=== PATIENT | female | born 1975 | race Caucasian/White ===

== ENCOUNTER 2017-12-02 06:45 | Day surgery (SDC) | payer BC ==
--- NOTE | 2017-11-24 14:39 | HP ---
PREOPERATIVE HISTORY AND PHYSICAL: DATE OF ADMISSION/SURGERY: 12/02/17 [facility] DATE OF OFFICE VISIT/ENCOUNTER: 11/19/17 ATTENDING SURGEON: Radha Brooks MD *(DICTATED BY ROGELIO LATIF) PROCEDURE: Right thumb trigger release. CHIEF COMPLAINT: Right thumb triggering. HISTORY OF PRESENT ILLNESS: This is a 42-year-old female, who complains of catching and clicking in her right thumb ongoing since the fall of 2016. 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 She says that it has become quite bothersome while she is working and she has a lot of pain and catching when she wakes up in the morning. Often times, her thumb is locked and it is very painful for her to extend her thumb. She denies any injury and there is no associated numbness or tingling. She has failed conservative treatment including a cortisone injection, oral antiinflammatories, and a thumb spica brace. She is interested in pursuing surgical intervention at this time. PAST MEDICAL HISTORY: 1. Depression. 2. GERD. 3. History of alcohol and drug abuse, sober for 24 years. PAST SURGICAL HISTORY: 1. Left knee surgery. 2. [place] teeth extraction. 3. Left foot plantar wart removal. 4. Anterior cervical diskectomy surgery in May of 2015. CURRENT MEDICATIONS: 1. Citalopram hydrobromide 40 mg daily. 2. Pantoprazole sodium 40 mg daily. 3. Vitamin B complex daily. ALLERGIES: PERCOCET, reaction unknown. FAMILY MEDICAL HISTORY: Epilepsy and COPD. SOCIAL HISTORY: The patient is employed in sterile processing at [employer]. She is a current smoker. She smokes less than half a pack a day and has done so for the past 8 years. She denies recreational drug use. She does not drink alcohol. She has been sober 24 years. REVIEW OF SYSTEMS: Negative for general, cephalic, cardiovascular, respiratory , GI, , other musculoskeletal, integumentary, endocrine, neurologic, and hematologic symptoms. Infectious Disease: Negative for MRSA, hepatitis C, and HIV. PHYSICAL EXAMINATION GENERAL: Well-developed, well-nourished, 42-year-old female in no acute distress. VITAL SIGNS: Height 5 feet 4 inches, weight 178 pounds. Pulse rate 84, blood pressure 110/86. HEENT: Normocephalic, atraumatic. Pupils are equal, round, and reactive to light and accommodation. Extraocular movements are intact. Throat is clear. NECK: Supple. No palpable lymph nodes. PULMONARY: Lungs are clear to auscultation bilaterally. No wheezes, rales, or rhonchi. CARDIOVASCULAR: Regular rate and rhythm. S1, S2. No murmurs, rubs, or gallops. No edema. ABDOMEN: Positive bowel sounds. Soft, nontender. MUSCULOSKELETAL: On exam of her right thumb, there is no visible swelling. She has tenderness to palpation at the A1 sonny and active triggering as she moves her thumb through flexion and extension. This is painful for her. NEUROLOGICAL: Alert and oriented x3. Cranial nerves II through XII are intact. Sensation is intact to light touch. IMPRESSION: Right thumb trigger thumb. PLAN: The patient is scheduled to undergo right thumb trigger release with Dr. Brooks on 12/02/17. She will return to the office 10 days postop for followup and suture removal. She will use [id number] medications for postoperative pain management. ROGELIO LATIF [id number]/[facility] #: [id number] [place]
[~2017-12-02 06:45] MED LIST: Buffered Lidocaine 0.9% SYRIN* 5 ML/SYR SYRINGE INTRADERM ONE; Famotidine IV* 10 MG/ML 2 ML (20 mg) IV ONE
[2017-12-02] MEDS ORDERED: Famotidine IV* 10 MG/ML 2 ML (20 mg) ONE (07:07)
[2017-12-02] MEDS ORDERED: Midazolam* 1 MG/ML 5 ML VIAL (5 MG) ONE (07:43)
[2017-12-02] MEDS ORDERED: fentaNYL* 50 MCG/ML 2 ML VIAL (100 MCG VIAL) ONE (07:43)
[2017-12-02] MEDS ORDERED: Lidocaine 1% INJ* 10 MG/ML 30 ML SDV ONE (08:04)
[2017-12-02] MEDS ORDERED: Acetaminophen TAB* 325 MG PO PRN (08:27)
[2017-12-02] MEDS ORDERED: DiMENhydriNATE IV* 50 MG/ML VIAL IV PUSH PRN (08:27)
[2017-12-02] MEDS ORDERED: Naloxone* 0.4 MG/ML 1 ML VIAL IV PRN (08:27)
[2017-12-02] MEDS ORDERED: Ketorolac INJ* 30 MG/ML 1 ML VIAL ONE (08:39)
[2017-12-02] MEDS ORDERED: Propofol* 10 MG/ML 20 ML BTL IV PUSH ONE (08:39)
[2017-12-02] MEDS ORDERED: Lidocaine 2% PF * 5 ML VIAL ONE (08:39)
[2017-12-02] MEDS ORDERED: Ondansetron INJ* 2 MG/ML VIAL ONE (08:39)
[2017-12-02 08:49] VITALS: BP 114/80
--- NOTE | 2017-12-03 02:43 | OP ---
DATE OF OPERATION: 12/02/17 [facility] DATE OF : 71 SURGEON: Radha Brooks MD SHORTAGE WORKER: ROGELIO Spencer ANESTHESIA: Local MAC. PRE-OP DIAGNOSIS: Right trigger thumb. POST-OP DIAGNOSIS: Right trigger thumb. OPERATIVE PROCEDURE: Right trigger thumb release. INDICATIONS FOR PROCEDURE: Clarissa is a 42-year-old female with locking and triggering of her right thumb. She has failed conservative treatment with cortisone injections, presents now for trigger thumb release. ESTIMATED BLOOD LOSS: Zero. TOURNIQUET TIME: About 10 minutes. DESCRIPTION OF PROCEDURE: The patient was brought to the operating room, was given a sedation anesthetic and a local infiltration of 10 cc of 1% plain lidocaine at the base of her right thumb. The skin of her right hand and forearm was prepped and draped in the usual sterile fashion. The hand and forearm were exsanguinated and the tourniquet elevated to 250 mmHg. A transverse incision was made centered over the A1 sonny of the index. We dissected bluntly through the subcutaneous tissue down to the A1 sonny. The digital neurovascular bundles were retracted by the automobile mechanic assistant, Kinza Patricio. The A1 sonny was incised longitudinally completely releasing the flexor tendon, where she had a mild abrasion on it from persistent triggering. The wound was irrigated and skin edges reapproximated with 4-0 nylon suture. The wound was dressed with Xeroform, 4x4, Webril, and an Hai wrap. The patient tolerated the procedure well and was brought to the recovery room in good condition. [id number]/[facility] #: [id number] [facility]ITAL[facility]
== END 2017-12-02 09:14 | disposition home or self-care (01) ==
LOC: OREAST 06:45
PROVIDERS: ATTEND Orthopaedic Surgery
DX: M65.311 Trigger thumb, right thumb (principal); F32.9 Major depressive disorder, single episode, unspecified; F17.210 Nicotine dependence, cigarettes, uncomplicated
CPT/HCPCS: J1885; J2250; J2405; J2704; J3010

== ENCOUNTER 2018-11-29 17:54 | Emergency (ER) | payer BC ==
[2018-11-29 18:16] VITALS: BP 149/90
[2018-11-29] MEDS ORDERED: Azithromycin TAB* 250 MG PO ONE (18:46)
--- NOTE | 2018-11-29 18:46 | UC ---
Respiratory Complaint HPI - HPI Summary HPI Summary: cough fever and right sides jaw pain began 3 days ago - History of Current Complaint Chief Complaint: UCRespiratory Stated Complaint: COUGH Time Seen by Provider: 11/29/18 18:38 Hx Obtained From: Patient Hx Last Menstrual Period: [id number] ?: No Onset/Duration: Sudden Onset Timing: Constant Pain Intensity: 7 Pain Scale Used: 0-10 Numeric Character: Cough: Nonproductive Aggravating Factors: Nothing Alleviating Factors: Nothing Associated Signs And Symptoms: Positive: Fever, Chills, URI, Sinus Discomfort - Allergies/Home Medications Allergies/Adverse Reactions: Allergies Allergy/AdvReac Type Severity Reaction Status Date / Time acetaminophen [From Percocet] Allergy Vomiting Verified 11/29/18 18:16 oxycodone [From Percocet] Allergy Vomiting Verified 11/29/18 18:16 Home Medications: Home Medications D-Methorphan/PE/Acetaminophen [Vicks Dayquil Liquicaps] 1 cap PO Q6H PRN [History Confirmed 11/29/18] PMH/Surg Hx/FS Hx/Imm Hx Previously Healthy: No GI/ History: Gastroesophageal Reflux Psychological History: Anxiety, Depression - Surgical History Surgical History: Yes Surgery Procedure, Year, and Place: Knee 2000-[facility] Lt. [place] Teeth. Plantar Wart. acdf c5-6, 2016,[facility]. Rt TRIGGER THUMB 12/2017 - Family History Known Family History: Positive: None - Social History Occupation: Employed Full-time Lives: With Family Alcohol Use: None Alcohol Amount: 24 yrs sober Substance Use Type: Marijuana Substance Use Comment - Amount & Last Used: clean 24 yrs Smoking Status (MU): Heavy Every Day Tobacco Smoker Type: Cigarettes Amount Used/How Often: normally 1/2 ppd for 8 yrs Length of Time of Smoking/Using Tobacco: 6 YEARS Have You Smoked in the Last Year: Yes Household Exposure Type: Cigarettes - Immunization History Most Recent Influenza Vaccination: 2015 Most Recent Tetanus Shot: unknown Most Recent Pneumonia Vaccination: never Review of Systems All Other Systems Reviewed And Are Negative: Yes Constitutional: Positive: Fever, Chills Skin: Positive: Negative Eyes: Positive: Negative ENT: Positive: Sore Throat, Sinus Congestion Respiratory: Positive: Cough Cardiovascular: Positive: Negative Gastrointestinal: Positive: Negative Genitourinary: Positive: Negative Motor: Positive: Negative Neurovascular: Positive: Negative Musculoskeletal: Positive: Negative Neurological: Positive: Negative Psychological: Positive: Negative Is Patient Immunocompromised?: No Physical Exam Triage Information Reviewed: Yes Appearance: No Pain Distress, Well-Nourished, Ill-Appearing - mild Vital Signs: Initial Vital Signs Temp 98.2 F 11/29/18 18:11 Pulse 91 11/29/18 18:11 Resp 12 11/29/18 18:11 BP 149/90 11/29/18 18:11 Pulse Ox 100 11/29/18 18:11 Vital Signs Reviewed: Yes Eye Exam: Normal Eyes: Positive: Conjunctiva Clear ENT Exam: Normal ENT: Positive: Normal ENT inspection, Hearing grossly normal, Pharynx normal, Nasal congestion, Nasal drainage, TMs normal, Sinus tenderness, Uvula midline. Negative: Tonsillar swelling, Tonsillar exudate, Trismus, Muffled voice, Hoarse voice, Dental tenderness Dental Exam: Normal Neck exam: Normal Neck: Positive: Supple, Nontender, No Lymphadenopathy Respiratory Exam: Normal Respiratory: Positive: Chest non-tender, Lungs clear, Normal breath sounds, No respiratory distress, No accessory muscle use Cardiovascular Exam: Normal Cardiovascular: Positive: RRR, No Murmur, Pulses Normal Musculoskeletal Exam: Normal Musculoskeletal: Positive: Strength Intact, ROM Intact, No Edema Neurological Exam: Normal Neurological: Positive: Alert, Muscle Tone Normal Psychological Exam: Normal Skin Exam: Normal Respiratory Course/Dx - Course Course Of Treatment: increase fluids, tylenol/ibuprofen for pain albuterol for cough/chest tightness follow with pcp - Differential Dx/Diagnosis Provider Diagnosis: Bronchitis, Hypertension, Nicotine dependence Discharge ED - Sign-Out/Discharge Documenting (check all that apply): Patient Departure All imaging exams completed and their final reports reviewed: No Studies - Discharge Plan Condition: Stable Disposition: HOME Prescriptions: Albuterol HFA INHALER* [Ventolin HFA Inhaler*] 2 puff INH Q6H PRN #1 mdi PRN Reason: cough/chest tightness Azithromycin TAB* [Zithromax TAB (Z-TOMÁS) 250 mg #6 tabs] 250 mg PO DAILY #4 tab Patient Education Materials: Acute Bronchitis (ED), Hypertension (ED), How to Use a Metered-Dose Inhaler and a Spacer (ED) Forms: *Work Release Referrals: Sonido Lamar MD [Primary Care Provider] - 2 Weeks - Billing Disposition and Condition Condition: STABLE Disposition: Home
[2018-11-29] MEDS ORDERED: Albuterol HFA INHALER* 8 gm MDI INH ONE (18:47)
== END 2018-11-29 19:23 | disposition home or self-care (01) ==
LOC: UCEAST 17:54
DX: J40 Bronchitis, not specified as acute or chronic (principal); I10 Essential (primary) hypertension; F17.210 Nicotine dependence, cigarettes, uncomplicated; Z88.5 Allergy status to narcotic agent
CPT/HCPCS: 87651; 99212; A9270-GY; G0463